=== PATIENT | male | born 1950 | race Caucasian/White ===

== ENCOUNTER 2024-12-04 09:49 | Outpatient (CLI) | payer MEDICARE, MEDICAID, SELFPAY ==
--- NOTE | 2024-12-04 06:00 | DI.RAD_ITS ---
Exam(s) XR PAIN CLINIC LUMBAR SP 2V EXAM: XR PAIN CLINIC LUMBAR SP 2V CLINICAL HISTORY: DX: Lumbar Radiculopathy TECHNIQUE: 2D and realtime digital imaging was performed. CONTRAST MATERIAL: Refer to procedure report. COMPARISON: No exams were available for comparison FINDINGS: Fluoroscopy was provided for Dr. Medeiros during the performance of a lumbar epidural steroid injecti on. Please refer to the procedure report for complete details. Ka,r=9.1 mGy IMPRESSION: RADIATION DOSE DELIVERED: 0.0 0.0 0
[2024-12-04 09:57] VITALS: BP 118/77; PULSE 71; RESP 18; TEMP 37; O2SAT 96
--- NOTE | 2024-12-04 09:59 | PDOC.PAIN ---
Date of service: 12/04/24 Time of Service: 10:35 Pain Managment Procedure Note Procedure Note Procedure Note: Lumbar Transforaminal Epidural Steroid Injection ? Location: LEFT L3 and L4 ? Pre-procedure Diagnosis: M54.17-Radiculopathy, lumbosacral region [M54.16 Radiculopathy, lumbar region] ? Post-procedure Diagnosis:? The same as above ? Sedation:? none ? Estimated blood loss:? less than 2 cc ? Surgeon:? 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 ? Procedure Detail:?? The procedure and potential risks were explained to the patient and informed written consent was obtained. The patient was escorted to the procedure room and placed in the prone position. Pillows were utilized for proper positioning and comfort. Time out was performed in the procedure room with nursing staff confirming the patient's identity, procedure to be performed, allergies, and any blood thinning or anti-platelet medications. The patient's lower back was prepped with ChloraPrep and draped in a sterile fashion. Sterile gloves were used, a face mask was worn, and new single dose vials of all medications were used with the top being swabbed with alcohol and given time to dry prior to withdrawal of medication. A LEFT-sided oblique fluoroscopic view was obtained, with visualization of L4-5. Lidocaine 1% was used to anesthetize the skin. The tip of a 22-gauge, Quincke needle was advanced toward the 6 o'clock position of the superior pedicle at the target level.? It was advanced just under the pedicle to the neural foramen L4-5. Correct needle placement was confirmed through review of the fluoroscopy. Next, following negative aspiration, 1cc's of Omnipaque 240 contrast was injected under live fluoroscopy which showed good flow throughout the epidural space and no evidence of vascular flow or flow into adjacent compartments. Next, following negative aspiration, 40mg Depo-Medrol and 0.5ml of 0.5% bupivacaine was injected. The needle was gently removed.? The procedure was also performed in the same fashion at LEFT L3 dexamethasone 10 mg and bupivacaine 0.5% 0.5 mL because of blood flow noted.? The patient tolerated the procedure well.? Permanent images saved and recorded. Plan:? Follow up prn PAIN: PRE PROCEDURE 05/16 POST PROCEDURE 05/16 COMMENT: The left side patient stated that he occasionally had pain down his right leg this could be repeated. He also has significant foraminal stenosis at L5 bilaterally as well which could be treated. Consider interlaminar at L5-S1.
[2024-12-04 10:14] VITALS: PULSE 85; O2SAT 88
[2024-12-04 10:20] VITALS: PULSE 77; O2SAT 96
[2024-12-04] MEDS: methylPREDNISolone ACETATE 40 MG/ML VIAL IJ (10:37)
[2024-12-04] MEDS: Dexamethasone Sod. Phos./Pres-Free 10 MG/ML VIAL IJ (10:37)
[2024-12-04] MEDS: Omnipaque 240 MG/ML 50 ML BTL IJ (10:37)
[2024-12-04] MEDS: Nerve Block Tray 1 EACH MC (10:37)
[2024-12-04] MEDS: Bupivacaine 0.5% Pres-Free 10 ML VIAL IJ (10:38)
== END 2024-12-04 09:50 | disposition home or self-care (01) ==
LOC: PC 09:49
PROVIDERS: PCP Physician Assistant Medical; Visit Provider Anesthesiology Pain Medicine
DX: M54.50 Low back pain, unspecified (principal); M54.17 Radiculopathy, lumbosacral region; M54.16 Radiculopathy, lumbar region
CPT/HCPCS: 00123; 64483; 64484; 72100; J0665; J1010; J1100; Q9967

== ENCOUNTER 2025-01-15 11:10 | Outpatient (CLI) | payer MEDICARE, MEDICAID, SELFPAY ==
--- NOTE | 2025-01-15 06:00 | DI.RAD_ITS ---
Exam(s) XR PAIN CLINIC LUMBAR SP 2V EXAM: XR PAIN CLINIC LUMBAR SP 2V CLINICAL HISTORY: DX: Lumbar Radiculopathy TECHNIQUE: 2D and realtime digital imaging was performed. CONTRAST MATERIAL: Refer to procedure report. COMPARISON: No exams were available for comparison FINDINGS: Fluoroscopy was provided for Dr. Medeiros during the performance of a lumbar epidural steroid injecti on. Please refer to the procedure report for complete details. Ka,r=8.25 mGy IMPRESSION: RADIATION DOSE DELIVERED: 0.0 0.0 0
--- NOTE | 2025-01-15 11:20 | PDOC.PAIN ---
Date of service: 01/15/25 Time of Service: 12:06 Pain Managment Procedure Note Procedure Note Procedure Note: Lumbar Interlaminar Epidural Steroid Injection ? Location: L5-S1 ? Pre-procedure Diagnosis: M54.16- Radiculopathy, LUMBAR region ? Post-procedure Diagnosis:? The same as above ? Sedation:? ? None ? Medication: Depo-Medrol 80 mg, Omnipaque 1 mL ? Estimated blood loss:? less than 2 cc ? Surgeon:? Compa Medeiros MD COMMENT:Patient has significant foraminal stenosis at L3 and L4 with radicular symptoms to his left thigh and not below the ankle. He had left transforaminal steroid injections without significant relief. Plan today is to try interlaminar approach. ? Procedure Detail:? The procedure and potential risks were explained to the patient and informed written consent was obtained. The patient was escorted to the procedure room and placed in the prone position. Pillows were utilized for proper positioning and comfort. Time out was performed in the procedure room with nursing staff confirming the patient's identity, procedure to be performed, allergies, and any blood thinning or anti-platelet medications.? The patient's neck and upper back was prepped with ChloraPrep and draped in a sterile fashion. Sterile technique was maintained throughout the procedure.? Sterile gloves were used, a face mask was worn, and new single dose vials of all medications were used with the top being swabbed with alcohol and given time to dry prior to withdrawal of medication. Lidocane 1% was used to anesthetize the skin.Using a 25-gauge 1.5 inch needle, 1% lidocaine was instilled into the superficial soft tissue overlying the targeted area to provide local anesthesia. With fluoroscopic guidance, a 17 -gauge Tuohy needle was advanced toward the interlaminar space of L5-S1. The needle was then advance through the ligamentum flavum and into the posterior epidural space using the loss of resistance technique. Correct needle placement was confirmed through review of the AP and contralateral oblique fluoroscopic views. A 19-gauge arrow catheter was threaded cephalad and to the Left L4-5 Following negative aspiration, one cc of Omnipaque 240 contrast was injected which confirmed good flow throughout the epidural space and no evidence of vascular flow or flow into adjacent compartments. Next, following negative aspiration, 1 cc's of normal saline and 80mg of Depo-Medrol was injected. The needle was gently removed. The patient tolerated the procedure well and was transported to the recovery area for observation and discharge instructions. Permanent images saved and recorded. PAIN PRE-PROCEDURE 04/16 POST-PROCEDURE 02/14 Plan:? Follow up prn. COMMENT: I previously encouraged him that if this does not give him significant relief that he proceed with the cardiac stress test and have surgical decompression. Coding Conscious Sedation used for procedure: No CPT Codes: Inj Spine L/S w/Imaging - [id number] ([id number] ~G) Additional Codes: Date of Service (24045) Date of service: 01/15/25
[2025-01-15 11:27] VITALS: BP 124/82; PULSE 65; RESP 18; TEMP 37.1; O2SAT 94
[2025-01-15 11:51] VITALS: PULSE 71; O2SAT 94
[2025-01-15 12:01] VITALS: PULSE 68; O2SAT 95
[2025-01-15] MEDS: methylPREDNISolone ACETATE 40 MG/ML VIAL IJ (12:08)
[2025-01-15] MEDS: Epidural Tray 1 EACH MC (12:08)
[2025-01-15] MEDS: Omnipaque 240 MG/ML 50 ML BTL IJ (12:08)
== END 2025-01-15 11:11 | disposition home or self-care (01) ==
PROVIDERS: PCP Physician Assistant Medical; Visit Provider Anesthesiology Pain Medicine
DX: M54.16 Radiculopathy, lumbar region (principal); M54.50 Low back pain, unspecified
CPT/HCPCS: 62323; 72100; J1010; Q9967